=== PATIENT | female | born 1945 | race Caucasian/White ===

== ENCOUNTER 2016-07-04 16:51 | Emergency (ER) | payer OTHER, MEDICARE ==
[~2016-07-04] VITALS: Ht 177.8 cm; Wt 158.8 kg
[2016-07-04 16:54] VITALS: BP 187/88
--- NOTE | 2016-07-04 16:58 | ED MVC/FALL/TRAUMA COMPLAINT ---
History of Present Illness General Chief Complaint: Fall Stated Complaint: RT HIP PAIN AFTER FALL Source: patient, old records, EMS Exam Limitations: no limitations Vital Signs & Intake/Output Vital Signs & Intake/Output Vital Signs Date Time Temp Pulse Resp B/P Pulse O2 O2 Flow FiO2 Ox Delivery Rate 07/04 1654 97.1 70 20 187/88 92 ED Intake and Output 07/05 0000 07/04 1200 Intake Total Output Total Balance Patient 350 lb Weight Allergies Coded Allergies: Penicillins (Severe, RASH/DIARRHEA 07/04/16) latex (Intermediate, RASH 07/04/16) shellfish derived (Intermediate, VOMITING 07/04/16) Uncoded Allergies: SULFA DRUGS (Severe, FACIAL/NECK SWELLING 07/04/16) Reconcile Medications Ibuprofen 800 MG TABLET 1 TAB PO TID PRN pain Triage Note: PT BIBA FROM HOME POST SLIP AND FALL ON ICE. PT FELL FROM STANDING HEIGHT ONTO HER RIGHT SIDE. PT C/O R HIP/KNEE PAIN. PT ABLE TO MOVE EXTREMITIES NORMALLY. DENIED ANY CHANGES IN NEUROLOGICAL FUNCTION. DENIED STRIKING HER HEAD AND LOC. PT HAD MINOR ABRASIONS TO HANDS. Triage Nurses Notes Reviewed? yes Onset: Abrupt Duration: hour(s): (1), constant Timing: recent history Severity: moderate Severity Numbers: 3 Injuries/Fall Location: pelvis, lower extremity Method of Injury: fall Loss of Consciousness: no loss of consciousness Modifying Factors: Worsens With: movement. Associated Symptoms: DENIES HPI: 71-year-old female presents after mechanical fall just prior to arrival one hour ago complaining now of gradual onset right hip and right knee pain 3 out of 10. There is no prodromal dizziness lightheadedness and she states she slipped on the ice. There is no head strike no loss of consciousness no neck or back pain. She denies any arm pain chest pain abdominal pain nausea vomiting or diarrhea. She denies any numbness or tingling to her legs no foot or ankle pain no left leg or upper extremity pain (VANESSA SANDERSON) Past History Medical History Any Pertinent Medical History? see below for history Neurological: neuropathy Cardiovascular: hypertension, hyperlipidemia Surgical History Surgical History: knee replacement (b/l) Psychosocial History Tobacco Use: Never used Family History Hx Contributory? No (VANESSA SANDERSON) Review of Systems Review of Systems Constitutional: Reports: see HPI. All Other Systems: Reviewed and Negative Comments Review of systems: See HPI, All other systems negative. Constitutional, no chills no fever, no malaise no weight loss HEENT: No visual changes no sore throat no congestion Cardiovascular: No chest pain , no palpitation Skin, no jaundice no rashes, no change in skin Respiratory: No dyspnea no cough no sputum GI: No nausea no vomiting, no diarrhea, no bloating/constipation : No dysuria No hematuria, no frequency, no discharge Muscle skeletal: joint pain, no joint swelling, no back pain, no neck pain, Neurologic: No numbness no confusion, no headache Psych: No stress Heme/endocrine: No bruising no bleeding Immunology: No lymphadenopathy (JUSTINE ALCOCER,VANESSA) Physical Exam Physical Exam General Appearance: well developed/nourished, alert, awake Comments: Well-developed well-nourished person in no acute distress HEENT: Normal EENT exam; PERRL, EOMI, no nystagmus. HEAD is atraumatic. moist mucous membranes. Neck: Supple, no midline or paracervical tenderness normal range of motion without pain or tenderness Back: Nontender, no CVA tenderness. Full range of motion no ecchymosis Cardiovascular: Regular rate and rhythms no murmurs rubs Respiratory: Chest nontender.There were no bony deformities, no asymmetry. No respiratory distress. Patient speaking in full complete sentences. Breath sounds clear to auscultation bilaterally: NO W/R/R Abdomen: Soft, obese nontender nondistended, no appreciable organomegaly. Normal bowel sounds. No rebound/guarding, No appreciable enlargement of the abdominal aorta, No ascites. Shoulder: Atraumatic/Stable. FROM . Elbow: Atraumatic/stable. FROM. No laxity Upper arm/Forearm: Atraumatic. Nontender. No edema, 5 out of 5 director integrated strength noted to bilateral upper extremities Hand/Wrist: Superficial abrasions noted to the dorsal aspects of bilateral hands , nontender no scaphoid tenderness. FROM Pulses: Normal/equal radial pulses bilaterally. Brisk cap refill Hip/Pelvis: Atraumatic/Stable. FROM. Mild tenderness over the right lateral hip no ecchymosis Knee: Atraumatic/stable. FROM. No joint swelling, no effusion. No laxity. Negative marilu/anterior drawer test. No pain with ROM no ecchymosis Leg: Atraumatic. Nontender. No edema, 5 out of 5 strength in the lower extremity, normal dorsiflexion of great toe bilaterally, gross sensation is intact, patellar tendon reflex 2+ bilaterally. Ankle/Foot: Atraumatic/stable. Skin intact. FROM. No swelling, no effusion. No laxity on exam Pulses: Normal/equal DP/PT pulses bilaterally. Brisk cap refill Neuro: Alert oriented x3, motor sensory normal, cranial nerves II through XII grossly intact. There were no obvious focal neurologic abnormalities. Skin: No appreciable rash on exposed skin, skin is warm and dry. Psych: Mood and affect is normal, memory and judgment is normal. Core Measures ACS in differential dx? No Severe Sepsis Present: No Septic Shock Present: No (JUSTINE ALCOCER,VANESSA) Progress Differential Diagnosis: abd injury, C/T/L spine injury, ext injury, ICH, pelvis injury, pnemothorax, spinal cord injury Plan of Care: Orders Procedure Date/time Status XRY-KNEE COMPLETE RIGHT 07/04 1705 Active XRY-HIP 2-3 VIEWS, RIGHT 07/04 1705 Active PT MEDICATED WITH MOTRIN 800MG UPON REQUEST, XRAYS ORDERED Discussed with the patient her x-ray results need for supportive care. She has a walker and a cane at home and feels safe with discharge home. I discussed with her need for Close follow-up with her orthopedist as well as her primary care physician Tylenol Motrin every 4-6 hours she feels comfortable this plan and answer all her questions, Case d/w dr ayala (JUSTINE ALCOCER,VANESSA) Diagnostic Imaging: Viewed by Me: Radiology Read. Discussed w/RAD: Radiology Read. Radiology Impression: PATIENT: DEB GALLO PRESENT AGE: 71 PATIENT ACCOUNT NO: [id number] : 43 LOCATION: [facility] ORDERING PHYSICIAN: VANESSA ALCOCER SERVICE DATE: 07/04/16 EXAM TYPE: RAD - XRY-HIP 2-3 VIEWS, RIGHT; XRY-KNEE COMPLETE RIGHT EXAMINATION: Right hip and right knee. CLINICAL INFORMATION: Fall. Pain right hip. COMPARISON: None TECHNIQUE: Two views of the right hip. 4 views right knee. FINDINGS: RIGHT HIP: There is mild reduction in the bilateral hip joint space. No bony erosive changes, fracture or dislocation seen involving either hip. Especially AP and frog-leg views of right hip reveal no fracture. The soft tissues are normal. RIGHT KNEE: There is total right knee prosthesis with prosthetic components in satisfactory alignment. There is no visible fracture or prosthetic loosening. There is dystrophic calcification superior to patella. No loose body seen. IMPRESSION: No visible fracture involving the pelvis or the right hip except for minimal loss of bilateral hip joint space. There is a total right knee prosthesis with prosthetic components in satisfactory alignment there is no suggestion of prosthetic loosening or loose bodies. There is dystrophic calcification along the soft tissues superior to the patella. DICTATED BY: ROCIO GARVEY MD DATE/TIME DICTATED:07/04/161806 COMMUNITY PLANNING TECHNICIAN:ZABRINA DATE/ TIME TRANSCRIBED:07/04/161806 CONFIDENTIAL, DO NOT COPY WITHOUT APPROPRIATE AUTHORIZATION. <Electronically signed in Other Vendor System> SIGNED BY: ROCIO GARVEY MD 07/04/161812 (VANESSA SANDERSON) Departure Departure Time of Disposition: 1815 Disposition: HOME OR SELF CARE Condition: Stable Clinical Impression Primary Impression: Contusion, hip Secondary Impressions: Fall, Knee contusion Referrals: TIMOTEO DELGADILLO MD (PCP/Family) Additional Instructions: Rest, ice, Tylenol Motrin for pain. Follow-up with your orthopedic doctor if symptoms persist return to the emergency room anytime sooner with any concerns Departure Forms: Customer Survey General Discharge Information Prescriptions: Current Visit Scripts Ibuprofen 1 TAB PO TID PRN pain #30 TAB (VANESSA SANDERSON) PA/[employer] APPLICATIONS MANAGER Co-Sign Statement Statement: ED Attending supervision documentation- [X] I saw and evaluated the patient. I have also reviewed all the pertinent lab results and diagnostic results. I agree with the findings and the plan of care as documented in the PA's/[employer] APPLICATIONS MANAGER's documentation. [X] I have reviewed the ED Record and agree with the PA's/[employer] APPLICATIONS MANAGER's documentation. [] Additions or exceptions (if any) to the PAs/[employer] APPLICATIONS MANAGER's note and plan are summarized below: [] (FLAVIA GREENE,EDVIN)
--- NOTE | 2016-07-04 18:13 | RADIOLOGY REPORT ---
EXAMINATION: Right hip and right knee. CLINICAL INFORMATION: Fall. Pain right hip. COMPARISON: None TECHNIQUE: Two views of the right hip. 4 views right knee. FINDINGS: RIGHT HIP: There is mild reduction in the bilateral hip joint space. No bony erosive changes, fracture or dislocation seen involving either hip. Especially AP and frog-leg views of right hip reveal no fracture. The soft tissues are normal. RIGHT KNEE: There is total right knee prosthesis with prosthetic components in satisfactory alignment. There is no visible fracture or prosthetic loosening. There is dystrophic calcification superior to patella. No loose body seen. IMPRESSION: No visible fracture involving the pelvis or the right hip except for minimal loss of bilateral hip joint space. There is a total right knee prosthesis with prosthetic components in satisfactory alignment there is no suggestion of prosthetic loosening or loose bodies. There is dystrophic calcification along the soft tissues superior to the patella.
[2016-07-04] MEDS ORDERED: IBUPROFEN800 M1 PO ×2 (18:17→18:22)
== END 2016-07-04 19:46 ==
LOC: ERH 16:51
DX: S70.01XA Contusion of right hip, initial encounter (principal); S80.01XA Contusion of right knee, initial encounter; W00.0XXA Fall on same level due to ice and snow, initial encounter
CPT/HCPCS: 73502-RT; 73562-RT